=== PATIENT | female | born 1975 | race Caucasian/White ===

== ENCOUNTER 2022-07-21 11:03 | Outpatient (CLI) | payer BC, SELFPAY ==
[2022-07-21 13:32] LABS: Cholesterol* 257 mg/dL (90-199); HDL Cholesterol* 57 mg/dL (>=50); LDL Cholesterol Calculated 149 mg/dL (<100); Triglycerides* 257 mg/dL (40-149)
== END 2022-07-21 11:04 | disposition home or self-care (01) ==
PROVIDERS: PCP Internal Medicine; Visit Provider Registered Nurse
DX: Z01.419 Encounter for gynecological examination (general) (routine) without abnormal findings (principal); R68.82 Decreased libido; N92.0 Excessive and frequent menstruation with regular cycle; Z12.4 Encounter for screening for malignant neoplasm of cervix; Z13.6 Encounter for screening for cardiovascular disorders
CPT/HCPCS: 80061; 87624; 88175

== ENCOUNTER 2022-08-04 15:52 | Outpatient (CLI) | payer BC, SELFPAY ==
--- NOTE | 2022-08-04 16:00 | CRLHL7_ITS ---
For Patients: As a result of the Century Cures Act, medical imaging exams and procedure reports are released immediately into your electronic medical record. You may view this report before your referring provider. If you have questions, please contact your health care provider. INDICATION: MENORRHAGIA COMPARISON: none TECHNIQUE: 2D noguera scale and color Doppler images were acquired of the pelvis using a transabdominal and transvaginal approach. FINDINGS: Sonographic images demonstrate a normal size and smooth outer contour of the uterus. Uterus measures 10.8 cm in length by 5.8 cm in AP diameter by 7.9 cm in transverse dimension. The myometrium has a mildly heterogeneous echotexture. An intramural leiomyoma is present anteriorly measuring 1.3 x 1.5 x 1.8 cm. The endometrial lining appears thickened and measures 19 mm in composite thickness. The right ovary measures 4.0 x 2.1 x 2.6 cm in size and the left ovary measures 3.0 x 1.5 x 1.5 cm. The ovaries demonstrate normal arterial and venous blood flow on color Doppler analysis. There are no suspicious fluid collections within the cul-de-sac. IMPRESSION: Diffusely thickened endometrium measuring 19 millimeters. Anterior intramural leiomyoma measuring 1.8 cm. Dictated by Magdy Mckinley MD @ 08/05/2022 11:45:22 AM (Electronically Signed)
== END 2022-08-04 15:53 | disposition home or self-care (01) ==
LOC: US 15:53
PROVIDERS: PCP Internal Medicine; Visit Provider Registered Nurse
DX: N92.0 Excessive and frequent menstruation with regular cycle (principal); R93.89 Abnormal findings on diagnostic imaging of other specified body structures; D25.1 Intramural leiomyoma of uterus
CPT/HCPCS: 76830; 76856

== ENCOUNTER 2022-08-17 15:12 | Outpatient (CLI) | payer BC, SELFPAY | END 2022-08-17 15:13 | disposition home or self-care (01) | PROVIDERS: PCP Internal Medicine; Visit Provider Obstetrics & Gynecology | DX: R10.2 Pelvic and perineal pain (principal) | CPT/HCPCS: 87086 ==

== ENCOUNTER 2024-07-06 09:03 | Outpatient (CLI) | payer BC, SELFPAY ==
--- NOTE | 2024-07-06 09:15 | CRLHL7_ITS ---
For Patients: As a result of the Century Cures Act, medical imaging exams and procedure reports are released immediately into your electronic medical record. You may view this report before your referring provider. If you have questions, please contact your health care provider. ULTRASOUND-GUIDED BREAST BIOPSY OF TWO SITES AND POST-BIOPSY DIGITAL MAMMOGRAM FOR BIOPSY MARKER PLACEMENT CLINICAL HISTORY: Indeterminate nodule(s). COMPARISON STUDIES: 06/27/2024, 06/11/2024. TECHNIQUE: Real-time ultrasound with image documentation was used for targeting the breast lesions. A core needle biopsy system was used to obtain core tissue samples with a 18-gauge needle. Post-biopsy CC and ML digital mammograms were obtained to document position of the biopsy marker. CONSENT and TIME OUT: The procedure, risks, and alternatives were explained to the patient and a consent was signed. Windber Protocol was followed including pre-procedure verification that relevant information/documentation was available, reviewed and properly matched to the patient; consent accurate and complete; and equipment and supplies available. Time Out was conducted just prior to starting procedure to verify the four required elements: patient identity, correct side/site marked (if applicable), procedure, relevant images/results properly labeled and displayed (if applicable). PROCEDURE: All biopsies were performed in a similar manner. The patient was positioned supine on the ultrasound table. The breast was prepped with ChloraPrep. 6 cc of 1% lidocaine was injected for superficial anesthesia. Core samples were obtained. A sterile metal biopsy clip was placed percutaneously to bonnie the lesion position within the breast. The specimens were placed in 10% formalin and sent to the Pathology Department. Pressure was held on the biopsy site until all bleeding subsided. The skin incision was closed with Steri-Strips. An ice pack was positioned over the biopsy site. The patient tolerated the procedure well. Post-biopsy instructions were reviewed with the patient, and a written copy was given to her. SITE A: LATERALITY: RIGHT breast. LESION: Hypoechoic lesion in fibroglandular tissue measuring 5 mm. SUSPICION: Low. NUMBER OF SAMPLES: 5. BIOPSY CLIP SHAPE: Oval. PROXIMITY OF CLIP TO TARGET: Within the lesion. SITE B: LATERALITY: RIGHT breast. LESION: Hypoechoic lesion measures 7 mm. SUSPICION: Low. NUMBER OF SAMPLES: 5. BIOPSY CLIP SHAPE: HydroMARK. PROXIMITY OF CLIP TO TARGET: Within the lesion. DISTANCE BETWEEN: Sites A and B: 3 cm. IMPRESSION: Ultrasound-guided breast biopsy of two sites. When the pathology report is available, an addendum to this report will be made. ACR not applicable Dictated by Magdy Mckinley MD @ 07/06/2024 2:24:21 PM /sp/weston SP/Dictated by: Magdy Mckinley MD @ 07/06/2024 2:24:00 PM (Electronically Signed)
--- NOTE | 2024-07-06 10:00 | CRLHL7_ITS ---
For Patients: As a result of the Century Cures Act, medical imaging exams and procedure reports are released immediately into your electronic medical record. You may view this report before your referring provider. If you have questions, please contact your health care provider. PLEASE SEE RIGHT BREAST ULTRASOUND-GUIDED BIOPSY OF SAME DAY. CRL:sp SP/Dictated by: Magdy Mckinley MD @ 07/06/2024 2:21:00 PM (Electronically Signed)
== END 2024-07-06 09:04 | disposition home or self-care (01) ==
LOC: US 09:03
PROVIDERS: Visit Provider Physician Assistant Medical
DX: N63.10 Unspecified lump in the right breast, unspecified quadrant (principal); N62 Hypertrophy of breast; R92.8 Other abnormal and inconclusive findings on diagnostic imaging of breast
CPT/HCPCS: 19083; 19084; 77065; 88305; A4648; A4649

== ENCOUNTER 2024-07-27 07:48 | Outpatient (CLI) | payer BC, SELFPAY ==
--- NOTE | 2024-07-27 08:00 | CRLHL7_ITS ---
For Patients: As a result of the Century Cures Act, medical imaging exams and procedure reports are released immediately into your electronic medical record. You may view this report before your referring provider. If you have questions, please contact your health care provider. BILATERAL BREAST MRI WITHOUT AND WITH GADOLINIUM CLINICAL HISTORY: At increased risk for breast cancer. Personal history of RIGHT breast biopsy in 2023 showing atypical lobular hyperplasia and PASH. There is also a remote past medical history of Hodgkin`s lymphoma in 1994 with chest radiation. INDICATION FOR BREAST MRI: High-risk screening breast MRI. COMPARISON STUDIES: No prior breast MRIs. Screening mammogram 06/11/2024 and diagnostic RIGHT mammogram and ultrasound 06/27/2024. Images from ultrasound-guided RIGHT breast biopsy and postbiopsy mammogram 07/06/2024. CONTRAST: 16 mL Dotarem. TECHNIQUE: The patient was positioned prone using a breast coil. Multiple imaging sequences were obtained using 1-1.5 mm thick slices with no gap. The image sequences include T2-weighted STIR in the axial plane, T1-weighted nonfat-saturated gradient echo in the axial plane, pre- and post-contrast T1-weighted FLASH 3D with fat suppression in the axial plane, and T1-weighted FLASH high resolution 3D with fat suppression in the sagittal plane. Image post-processing was performed on a [employer] workstation. Complex 3D rendering including maximum intensity projections (MIPS) and volumetric renderings were obtained to optimize visualization of the extent of pathology and relationship to the nipple, skin, and chest wall. This aids in determining feasibility of breast conservation surgery. Subtraction, multiplanar reconstruction, mean curve determination, and angiogenesis mapping were also performed. The study was technically adequate. FINDINGS: Amount of Fibroglandular Tissue: Heterogeneous fibroglandular tissue. Breast Background Enhancement: Moderate. RIGHT Breast: At 9 o`clock, 6 cm posterior to the nipple there is a 1 x 1.2 x 0.8 cm oval mass with irregular margins demonstrating fast initial and washout delayed phase enhancement. This corresponds to a mass seen on mammogram. At 10 o`clock 5 cm posterior to the nipple there is susceptibility artifact from the twirl-shaped biopsy marking clip at the site of recent biopsy which showed atypical lobular hyperplasia. At 10 o`clock, 9 cm posterior to the nipple there is artifact from the HydroMARK clip at the site of the biopsy showing PASH. There is no abnormal enhancement associated with the clips. LEFT Breast: There is no suspicious mass or enhancement. Lymph Nodes: No abnormal morphology lymph nodes. IMPRESSIONS AND RECOMMENDATIONS: 1. At 9 o`clock, 6 cm posterior to the nipple in the RIGHT breast there is a 1.2 cm enhancing mass which corresponds to a mass seen on mammogram. Recommend targeted RIGHT breast ultrasound and possible ultrasound-guided biopsy. If there is no sonographic correlate, then stereotactic-guided biopsy would be recommended. 2. No abnormal enhancement in the upper outer RIGHT breast at the site of recent ultrasound-guided biopsies which showed atypical lobular hyperplasia and PASH. 3. No MRI evidence of malignancy in the LEFT breast. 4. No abnormal morphology lymph nodes. BI-RADS Category 4: Suspicious Dictated by Fátima Diaz MD @ 07/30/2024 1:52:02 PM jose guadalupe/Dictated by: Fátima Diaz MD @ 07/30/2024 1:52:00 PM (Electronically Signed)
== END 2024-07-27 07:49 | disposition home or self-care (01) ==
LOC: MRI 07:49
PROVIDERS: PCP Physician Assistant Medical; Visit Provider Surgery
DX: Z12.39 Encounter for other screening for malignant neoplasm of breast (principal); N63.10 Unspecified lump in the right breast, unspecified quadrant; N60.91 Unspecified benign mammary dysplasia of right breast
CPT/HCPCS: 77049; A9575

== ENCOUNTER 2024-12-24 13:30 | Outpatient (RCR) | payer BC, SELFPAY ==
[2024-09-10 12:05] LABS: Albumin* 4.6 g/dL (3.3-5.0)
[2024-09-10 12:08] LABS: Alkaline Phosphatase* 81 U/L (40-150); Aspartate Amino Transferase* 25 U/L (12-35); Bilirubin Direct* 0.2 mg/dL (0.0-0.5); Bilirubin Total* 0.3 mg/dL (0.1-1.5); Total Protein* 7.5 g/dL (6.0-8.3)
[2024-09-10 12:09] LABS: Alanine Aminotransferase* 21 U/L (4-35)
--- NOTE | 2024-09-14 12:16 | ONC.NURNOTE ---
Addendum entered by Myranda Alicea 09/17/24 15:27: Patient informed that. 1. Tamoxifen would offer approximately a 50% risk reduction 2. Prophylactic mastectomy is 100% her personal preferance and we would gladly set her up to see Dr. Brand to dicsuss this further if she is interested. 3. Recommendation is for imaging every 6 months but we will have to see what insurance allows. Patient will discuss further with her and return call with her decision. She will need follow scheduled. Original Note: Patient called with follow up questions from her consultation last week: 1. Patient is wondering if she takes the Tamoxifen, how much does this reduce her breast cancer risk? 2. Patient is wondering if it would be reasonable for her to consider prophylactic mastectomy? 3. For her high risk breast imaging, she would be due for mammogram in January but she is not due for her screening mammogram until June. What do you recommend since insurance won't pay for screening mammogram early. I assured her I would discuss her concerns with Dr. Person next week and give her a call.
--- NOTE | 2024-10-17 11:56 | ONC.NURNOTE ---
Call to patient for an update on her condition. Patient started Tamoxifen on 09/30/2024. Other than intermittent nausea she is tolerating it well. Follow up scheduled for December. Patient will check with her insurance to see if she can have a mammogram in January, otherwise we will defer to June when it is due. Patient encouraged to call with questions or concerns.
== END 2025-03-09 23:59 | disposition home or self-care (01) ==
LOC: CCIC 13:30
PROVIDERS: Internal Medicine Hematology & Oncology; PCP Physician Assistant Medical; Visit Provider Physician Assistant
DX: N60.91 Unspecified benign mammary dysplasia of right breast (principal)
CPT/HCPCS: 36415; 80076; 99202; 99205; 99213; G0463

== ENCOUNTER 2025-04-17 11:00 | Outpatient (RCR) | payer BC, SELFPAY | END 2025-08-15 23:59 | disposition home or self-care (01) | PROVIDERS: PCP Physician Assistant Medical; Visit Provider Physician Assistant Medical | DX: N39.46 Mixed incontinence (principal); Z51.89 Encounter for other specified aftercare | CPT/HCPCS: 97110; 97112; 97140; 97162; 97535 ==

== ENCOUNTER 2025-05-03 13:50 | Outpatient (CLI) | payer BC, SELFPAY ==
--- NOTE | 2025-05-03 14:00 | CRLHL7_ITS ---
For Patients: As a result of the Century Cures Act, medical imaging exams and procedure reports are released immediately into your electronic medical record. You may view this report before your referring provider. If you have questions, please contact your health care provider. INDICATION: Menorrhagia COMPARISON: 08/04/2022 TECHNIQUE: 2D nogeura-scale and color Doppler images were acquired of the pelvis using a transabdominal and transvaginal approach. Transvaginal imaging performed to better visualize the endometrial stripe and ovaries. FINDINGS: Subserosal fibroid is present anteriorly which measures 1.9 x 1.3 x 1.8 cm. Uterus measures 10.7 cm in length by 5.0 cm in AP diameter by 6.3 cm in transverse dimension. Endometrium measures up to 12 millimeters. No endometrial fluid. The right ovary measures 3.0 x 1.6 x 1.7 cm in size and the left ovary measures 3.2 x 1.2 x 2.0 cm. The ovaries demonstrate normal arterial and venous blood flow on color Doppler analysis. There are no suspicious fluid collections within the cul-de-sac. IMPRESSION: Endometrial thickness measures up to 12 millimeters. Dictated by Magdy Mckinley MD @ 05/03/2025 4:13:18 PM (Electronically Signed)
--- OUTSIDE RECORDS SUMMARY | 2025-05-04 00:33 | XMS_ITS | Clinical Summary ---
Author Organization [facility] Address [address] [place] [id number] Care Team Providers Care Loan Coordinator Name Role Phone Uma Ferrari Primary Care Provider Allergies Active Allergy Reactions Criticality Noted Date Comments Azithromycin Stomach Upset 04/29/2021 Green Tea Hives 04/29/2021 Medications ALPRAZolam (XANAX) 0.5 mg tabletIndications: Fear of flying Take 1 tab 1/2-1 hour prior to flight. Use for prior to flying. 10 Tablet 3 Active escitalopram oxalate (LEXAPRO) 10 mg tabletIndications: Depression, unspecified depression type Take 1 Tablet (10 mg) by mouth once daily. 90 Tablet 3 4 Active metoprolol tartrate (LOPRESSOR) 25 mg tabletIndications: Cardiac arrhythmia, unspecified cardiac arrhythmia type Take 1.5 Tablets (37.5 mg) by mouth two times daily. 270 Tablet 3 4 Active betamethasone dipropionate 0.05 % creamIndications:D yshidrotic eczema Apply topically to affected area(s) once daily. 45 g 4 Active ZOLMitriptan (ZOMIG-ZMT) 2.5 mg disintegrating tabletIndications: Migraine syndrome Place 1 Tablet (2.5 mg) on the tongue every 2 hours if needed for Migraine. Give at minimum 2hrs apart. Max Dose: 10mg per 24hrs. 10 Tablet 3 4 Active ondansetron (ZOFRAN ODT) 4 mg disintegrating tabletIndications: Migraine syndrome Place 1 Tablet (4 mg) on the tongue every 8 hours if needed for Nausea/Vomiti ng. 30 Tablet 4 Active Active Problems Problem Noted Date Diagnosed Date Atypical lobular hyperplasia (ALH) of right [address] 07/17/2024 Encounters Date Type Department Care Team Description 04/17/2025 1:30 PM CDT Office Visit [facility] [address] [place] [phone] Lizett Childers [facility] Individual Therapy; Trmt Plan 04/17/2025 Travel 02/25/2025 10:00 AM CDT Office Visit [facility] [address] [place] [id number] Lizett Childers [facility] Individual Therapy 02/25/2025 Travel from Last 3 Months Immunizations Immunization Administration Dates Next Due COVID-19 vaccine (Moderna 10 0mcg/0.5mL) PF, MDV 01/14/2021,12/17/2020 Influenza A (H1N1), Inactivated 09/04/2009 Influenza Virus, Unspecified 08/16/2018 Influenza, IIV3 (Age 6-35 mos) 11/16/2012,2008 Influenza, IIV3 (Age >=3 years) 08/14/2014,08/10,08/04/2010 Influenza, IIV4 07/21/2017 Influenza, IIV4 (=>6mos) MDV 09/08/2022,09/03/20,08/16/2019 Influenza, Injectable, Mdck, Quadrivalent, W/preservative 08/16/2018 Influenza,CCIIV4 PRESERV FREE 09/29/2020 Td (Age >=7 Years) 07/21/2022 Tdap 04/20/2013 Family History Medical History Relation Name Comments Hyperlipidemia Father Scoliosis Mother Cancer-breast No Family History Cancer-colon No Family History Cancer-ovarian No Family History Relation Name Status Comments Brother Alive Father Alive Mother Alive Sister Alive Social History Tobacco Use Types Packs/Day Years Used Date Smoking Tobacco: Never Smokeless Tobacco: Never Tobacco Cessation:Counseling Given: Not Answered Alcohol Use Standard Drinks/Week Comments Yes 0 (1 standard drink = 0.6 oz pure alcohol) 1 per day-drink of choice varies PHQ-2 Answer Date Recorded PHQ-2 TOTAL SCORE 0 04/25/2023 Social Connections Answer Date Recorded Do you often feel lonely or isolated from those around you? 0 07/11/2024 Financial Resource Strain Answer Date R ecorded Difficulty of Paying Living Expenses 3 07/11/2024 Difficulty of Paying Living Expenses Not on file 07/11/2024 Food Insecurity Answer Date Recorded Do you worry your food will run out before you are able to buy more? 1 07/11/2024 Transportation Needs Answer Date Record ed Does lack of transportation keep you from medica l appointments? 1 07/11/2024 Does lack of transportation keep you from work, meetings or getting things that you need? 1 07/11/2024 Housing Stability Answer Date Recorded What is your housing situation today? 1 07/11/2024 Utilities Answer Date Recorded Do you have trouble paying f or utilities (for example, heat, electricity, water, phone)? 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[employer]ER Gender Identity Not on file Sexual Orientation Not on file Obstetrics History Para Term AB IAB SAB Ectopic Multiple Livin g Live Births 6 1 1 5 Date Outcome GA Total Labor Labor/2nd/3rd Weight Sex Type Anes PTL Hallie A1 A5 Name Clin SAB Last Filed Vital Signs Vital Sign Reading Time Taken Comments Blood Pressure 103/72 09/10/2024 8:41 AM WRAPPER SHE[employer] Pulse 98 09/10/2024 8:41 AM WRAPPER SHEETER Temperature 36.7 C (98.1 F) 09/10/2024 8:41 AM WRAPPER SHEETER Respiratory Rate - - Oxygen Saturation 99% 09/10/2024 8:41 AM WRAPPER SHEETER Inhaled Oxygen Concentration - - Weight 78.7 kg (173 lb 9.6 oz) 09/10/2024 8:41 A M [employer] Height 165.9 cm (5' 5.32) 09/23/2021 1:10 PM CS T Body Mass Index 28.61 09/23/2021 1:10 PM WRAPPER SHE[employer]ER Plan of Treatment Upcoming Encounters Date Type Department Care Team (Late st Contact Info) Description 06/05/2025 11:45 AM CDT Office Visit [facility] [address] [place] [phone] Lizett Childers, [facility] [address] [place] [address] 06/12/2025 1:30 PM CDT Office Visit [facility] [address] [facility] [phone] Lizett Childers, [facility] [address] [place] [address] Health Maintenance Due Date Last Done Comments Depression screening for age 12+ 1989 HIV for age 15-65 1992 Hepatitis C screening for ag e 18-79 1995 Hepatitis B series for 19+ ( 1 of 3 - 19+ 3-dose series) 1996 Pneumococcal series for age 6-49 (1 of 2 - PCV) 1996 Colonoscopy through age 75 2022 Lipids for age 45-75 2022 BMI (ht and wt on same day) for age 18+ 09/23/2022 09/23/2021, 04/29/2021 COVID-19 vaccine series (2023- season) 2024 08/11/2023, 07/17/2022, 09/03/2021, Additional history exists Mammogram for age 45-75 06/27/2025 06/27/2024, 06/11 Influenza Vaccine (Season Ended) 2025 09/08/2022, 09/03/2021, 09/29/2020, Additional history exists Pap test for age 21-65 07/21/2025 , 07/21/2022, 10/26/2010 Tetanus booster 07/21/2032 07/21/2022, 04/20/2013 Tdap Completed 04/20/2013 Procedures Procedure Name Priority Date/Time Associated Diagnosis Comments XR MAMMO AMADO UNI ADDL VIEWS RIGHT GRETA 06/27/2024 2:03 PM CDT Abnormal mammogram HPV HIGH RISK Routine 07/21/2022 10:45 AM CDT from Last 3 Months or Most Recently Relevant to Health Maintenance Results * XR MAMMO AMADO UNI ADDL VIEWS RIGHT (06/27/2024 2:03 PM CDT) Anatomical Region Laterality Modality BREASTS, Breast Right Mammograph y 06/27/2024 3:17 PM CDT Impressions 06/27/2024 3:58 PM CDT Indeterminate solid nodule RIGHT breast 10 o'clock 5 cm from the nipple measuring 12 mm. RECOMMENDATIONS: Ultrasound-guided core needle biopsy. BI-RADS Category 4: Suspicious Dictated by: Magdy Mckinley MD @06/27/2024 3:17:06 PM /sp PATIENTS: You will also receive a letter with your examination results in an easy to read format. If you have questions about your results, please contact your referring provider. Narrative 06/27/2024 3:58 PM CDT As a result of the Cures Act, medical imaging exams and procedure reports are released immediately into your electronic medical record. You may view this report before your referring provider. If you have questions, please contact your health care provider. RIGHT BREAST MAMMOGRAM DIGITAL ADDITIONAL VIEWS WITH TOMOSYNTHESIS 06/27/2024 RIGHT BREAST ULTRASOUND 06/27/2024 CLINICAL HISTORY: RIGHT breast mass/asymmetry. COMPARISON: 06/11/2024. TECHNIQUE: Digital RIGHT mammogram in two projections. Tomosynthesis was used in this interpretation. Real-time ultrasound imaging of RIGHT breast with imaging documentation. BREAST COMPOSITION: The breast is heterogeneously dense, which may obscure small masses. FINDINGS: 3D spot compression CC/MLO RIGHT breast mammogram images submitted. Persistent nodular density is present without architectural distortion. Punctate microcalcifications are noted. Targeted RIGHT breast ultrasound performed. At 10 o'clock 5 cm from the nipple, there is a macrolobular hypoechoic solid nodule measuring 9 x 11 x 12 mm. Some of the margins are irregular. us Uma WILHELM MAMMO Final R esult * HPV HIGH RISK (07/21/2022 10:45 AM CDT) TYPE 16 Negative Negative 07/26/2022 3:12 PM CDT [facility] TYPE 18 Negative Negative 07/26/2022 3:12 PM CDT [facility] OTHER HIGH RISK TYPES Negative Negative 07/26/2022 3:12 PM CDT [facility] Other (Cervical) 07/21/2022 10:45 AM CDT 07/23/2022 9:03 AM CDT Narrative [facility] - 07/26/2022 3:12 PM CDT HPV types 16, 18, 31, 33, 35, 39, 45, 51, 52, 56, 58, 59, 66 and 68 DNA were undetectable or below the pre-set threshold. Methodology: Gema Ant 4800 HPV Test us Alexandra Hart NP MICROBIOLOGY Final Res ult [facility] [address] [place] [address], from Last 3 Months or Most Recently Relevant to Health Maintenance Insurance [facility] * Guarantor: DAVIN GOLDBERG Account Type Relation to Patient Date of Phone Billing Address Personal/Family Spouse Care Teams Loan Coordinator Relationship Specialty Start Date End Date Uma Ferrari PA [address] [place] [address] PCP - General Physician Cleaner And Presser 01/29/22
== END 2025-05-03 13:51 | disposition home or self-care (01) ==
LOC: US 13:52
PROVIDERS: PCP Physician Assistant Medical; Visit Provider Physician Assistant
DX: N92.0 Excessive and frequent menstruation with regular cycle (principal); R93.89 Abnormal findings on diagnostic imaging of other specified body structures; N60.91 Unspecified benign mammary dysplasia of right breast; Z92.29 Personal history of other drug therapy
CPT/HCPCS: 76830; 76856

== ENCOUNTER 2025-06-13 11:18 | Outpatient (CLI) | payer BC, SELFPAY ==
--- NOTE | 2025-06-13 11:30 | CRLHL7_ITS ---
For Patients: As a result of the Century Cures Act, medical imaging exams and procedure reports are released immediately into your electronic medical record. You may view this report before your referring provider. If you have questions, please contact your health care provider. INDICATION: BILATERAL SCREENING MAMMOGRAM, SAYMPTOMATIC 50 Y/O FEMALE COMPARISON: 06/11/2024, 05/31/2014 TECHNIQUE: Digital mammogram in CC and MLO projections including computer-aided detection (CAD) and tomosynthesis. BREAST COMPOSITION: The breasts are heterogeneously dense, which may obscure small masses. FINDINGS: No suspicious findings. ASSESSMENT: BI-RADS 2 Benign RECOMMENDATION: Annual screening mammogram. A lay language report of this examination will be provided to the patient. Dictated by: Magdy Mckinley MD @ 06/14/2025 09:03:20 (Electronically Signed)
== END 2025-06-13 11:19 | disposition home or self-care (01) ==
LOC: MAMMO 11:18
PROVIDERS: PCP Physician Assistant Medical; Visit Provider Physician Assistant
DX: Z12.31 Encounter for screening mammogram for malignant neoplasm of breast (principal); R92.333 Mammographic heterogeneous density, bilateral breasts
CPT/HCPCS: 77063; 77067